=== PATIENT | female | born 1960 | race Hispanic/Latino ===

== ENCOUNTER 2018-02-16 12:43 | Observation (INO) | payer SELFPAY ==
[2018-02-16] VITALS (8 sets, daily range): BP systolic 108–145; BP diastolic 64–95
[~2018-02-16] VITALS: Ht 162.6 cm; Wt 52.0 kg
[~2018-02-16 12:43] MED LIST: MIRALAX3350 N1 PO; NOVOLIN 70/30 INNLT SC; PREVACID30 M3 PO; UNK INSULIN SC; ZOFRAN ODT4 MG PO
[2018-02-16] MEDS ORDERED: METFORMIN500 MG PO (12:54)
[2018-02-16 13:50] LABS: HEMATOCRIT 41.5 % (37.0-47.0); HEMOGLOBIN 14.6 g/dl (12.0-16.0); IMMATURE GRANULOCYTES 0.6 % (0.0-5.0); MEAN CELL VOLUME 83.3 fL CALC (80.0-100.0); MEAN CORPUSCULAR HGB 29.3 pG CALC (26.0-32.0); MEAN CORPUSCULAR HGB CONC 35.2 g/L CALC (32.0-36.0); NEUT# 4.11 thou/uL (2.00-7.15); RED BLOOD COUNT 4.98 mill/uL (4.20-5.60); RED CELL DISTRI WIDTH 12.8 % (11.5-15.5)
[2018-02-16 14:05] LABS: ALBUMIN 4.1 g/dL (3.2-5.0); ALKALINE PHOSPHATASE 212 u/l (38-126); ANION GAP 18 (6-22 (CALC)); BILIRUBIN, TOTAL 0.5 mg/dL (0.0-1.4); BUN 14 mg/dL (7-17); BUN/CREATININE RATIO 37 (12-20 (CALC)); CARBON DIOXIDE 20 mmol/l (22-30); CHLORIDE 99 mmol/l (95-108); CREATININE 0.4 mg/dL (0.5-1.0); GFR > 60 ML/MIN (>=60 (CALC)); GFR FOR AFR.AMER. > 60 ML/MIN (>=60 (CALC)); LIPASE 79 u/l (23-300); POTASSIUM 4.2 mmol/l (3.5-5.1); SGOT/AST 17 u/l (14-36); SODIUM 134 mmol/l (137-146); TOTAL PROTEIN 7.4 g/dL (6.3-8.2)
[2018-02-16 14:44] LABS: URINE BILIRUBIN - DIPSTICK NEGATIVE (NEGATIVE); URINE BLOOD DIPSTICK NEGATIVE (NEGATIVE); URINE COLOR YELLOW; URINE GLUCOSE - DIPSTICK >=1000 mg/dL (NEGATIVE); URINE KETONE NEGATIVE (NEGATIVE); URINE LEUK ESTERASE NEGATIVE (NEGATIVE); URINE NITRITE - DIPSTICK NEGATIVE (Negative); URINE PROTEIN - DIPSTICK NEGATIVE (NEG-TRACE); URINE UROBILINOGEN - DIPSTICK 0.2 E.U./dL (0.2)
[2018-02-17 02:00] VITALS: BP 108/60
[2018-02-17 06:00] VITALS: BP 106/74
[2018-02-17 08:00] VITALS: BP 107/52
[2018-02-17 10:58] LABS: HEMATOCRIT 39.9 % (37.0-47.0); HEMOGLOBIN 14.1 g/dl (12.0-16.0); IMMATURE GRANULOCYTES 0.3 % (0.0-5.0); MEAN CELL VOLUME 83.6 fL CALC (80.0-100.0); MEAN CORPUSCULAR HGB 29.6 pG CALC (26.0-32.0); MEAN CORPUSCULAR HGB CONC 35.3 g/L CALC (32.0-36.0); NEUT# 4.72 thou/uL (2.00-7.15); RED BLOOD COUNT 4.77 mill/uL (4.20-5.60); RED CELL DISTRI WIDTH 12.9 % (11.5-15.5)
[2018-02-17 11:50] LABS: ALBUMIN 3.3 g/dL (3.2-5.0); ALKALINE PHOSPHATASE 147 u/l (38-126); ANION GAP 12 (6-22 (CALC)); BILIRUBIN, TOTAL 0.5 mg/dL (0.0-1.4); BUN 12 mg/dL (7-17); BUN/CREATININE RATIO 29 (12-20 (CALC)); CARBON DIOXIDE 25 mmol/l (22-30); CHLORIDE 102 mmol/l (95-108); CREATININE 0.4 mg/dL (0.5-1.0); GFR > 60 ML/MIN (>=60 (CALC)); GFR FOR AFR.AMER. > 60 ML/MIN (>=60 (CALC)); POTASSIUM 4.2 mmol/l (3.5-5.1); SGOT/AST 17 u/l (14-36); SODIUM 134 mmol/l (137-146); TOTAL PROTEIN 6.3 g/dL (6.3-8.2)
[2018-02-17 12:00] VITALS: BP 106/56
[2018-02-17] MEDS ORDERED: METFORMIN1000 MG PO (12:37)
[2018-02-17] MEDS ORDERED: COZAAR25 MG PO (12:40)
[2018-02-17] MEDS ORDERED: FREESTYLELITE100 XX (12:56)
== END 2018-02-17 14:04 | disposition home or self-care (01) | DRG 638 ==
LOC: ED 12:43 → ED-I 15:07 → ED 15:19 → ICU 15:20
PROVIDERS: Family Medicine; ADMIT Internal Medicine Nephrology; ATTEND Internal Medicine Nephrology
PROC: 3E0234Z Introduction of Serum, Toxoid and Vaccine into Muscle, Percutaneous Approach (ICD-10-PCS; principal; 2018-02-17)
DX: E11.65 Type 2 diabetes mellitus with hyperglycemia (principal); E87.0 Hyperosmolality and hypernatremia; I10 Essential (primary) hypertension; T38.3X6A Underdosing of insulin and oral hypoglycemic [antidiabetic] drugs, initial encounter; Z91.128 Patient's intentional underdosing of medication regimen for other reason; Z23 Encounter for immunization; Z79.4 Long term (current) use of insulin
CPT/HCPCS: J1650

== ENCOUNTER 2018-03-03 14:16 | Emergency (ER) | payer SELFPAY ==
[~2018-03-03] VITALS: Ht 162.6 cm; Wt 65.0 kg
[~2018-03-03 14:16] MED LIST changes: +COZAAR25 MG PO; +FREESTYLELITE100 XX; +METFORMIN1000 MG PO; +METFORMIN500 MG PO
[2018-03-03 17:04] LABS: HEMATOCRIT 41.2 % (37.0-47.0); HEMOGLOBIN 14.4 g/dl (12.0-16.0); IMMATURE GRANULOCYTES 0.3 % (0.0-5.0); MEAN CELL VOLUME 83.7 fL CALC (80.0-100.0); MEAN CORPUSCULAR HGB 29.3 pG CALC (26.0-32.0); NEUT# 4.51 thou/uL (2.00-7.15); RED BLOOD COUNT 4.92 mill/uL (4.20-5.60); RED CELL DISTRI WIDTH 12.9 % (11.5-15.5)
[2018-03-03 17:17] LABS: ALKALINE PHOSPHATASE 149 u/l (38-126); ANION GAP 14 (6-22 (CALC)); BILIRUBIN, TOTAL 0.3 mg/dL (0.0-1.4); BUN 14 mg/dL (7-17); BUN/CREATININE RATIO 30 (12-20 (CALC)); CARBON DIOXIDE 26 mmol/l (22-30); CHLORIDE 102 mmol/l (95-108); CREATININE 0.5 mg/dL (0.5-1.0); GFR > 60 ML/MIN (>=60 (CALC)); GFR FOR AFR.AMER. > 60 ML/MIN (>=60 (CALC)); POTASSIUM 4.2 mmol/l (3.5-5.1); SGOT/AST 22 u/l (14-36); SODIUM 138 mmol/l (137-146); TOTAL PROTEIN 7.4 g/dL (6.3-8.2)
[2018-03-03 17:18] LABS: ALBUMIN 4.2 g/dL (3.2-5.0)
[2018-03-03 17:21] LABS: C-REACTIVE PROTEIN 0.5 mg/dL (0-0.9)
[2018-03-03 17:29] LABS: MYOGLOBIN 17 ng/mL (0 - 62)
[2018-03-03 18:23] LABS: URINE BILIRUBIN - DIPSTICK NEGATIVE (NEGATIVE); URINE BLOOD DIPSTICK NEGATIVE (NEGATIVE); URINE COLOR YELLOW; URINE GLUCOSE - DIPSTICK >=1000 mg/dL (NEGATIVE); URINE KETONE NEGATIVE (NEGATIVE); URINE LEUK ESTERASE NEGATIVE (NEGATIVE); URINE NITRITE - DIPSTICK NEGATIVE (Negative); URINE PH 7.5 (4.5-8.0); URINE PROTEIN - DIPSTICK NEGATIVE (NEG-TRACE); URINE UROBILINOGEN - DIPSTICK 0.2 E.U./dL (0.2)
[2018-03-03] MEDS ORDERED: ANTIVERT PO (19:34)
[2018-03-03] MEDS ORDERED: TORADOL PO (19:34)
[2018-03-03 20:00] VITALS: BP 141/65
== END 2018-03-03 20:06 | disposition home or self-care (01) | DRG 149 ==
LOC: ED 14:16
PROVIDERS: Emergency Medicine
DX: R42 Dizziness and giddiness (principal); R51 Headache; M79.605 Pain in left leg; M79.604 Pain in right leg; I10 Essential (primary) hypertension; E11.9 Type 2 diabetes mellitus without complications

== ENCOUNTER 2018-04-21 13:53 | Emergency (ER) | payer SELFPAY ==
[~2018-04-21] VITALS: Ht 162.6 cm; Wt 110.0 kg
[~2018-04-21 13:53] MED LIST changes: +ANTIVERT PO; +TORADOL PO
[2018-04-21] MEDS ORDERED: METFORMIN500 M2 PO (16:15)
[2018-04-21 16:37] LABS: URINE BILIRUBIN - DIPSTICK NEGATIVE (NEGATIVE); URINE BLOOD DIPSTICK NEGATIVE (NEGATIVE); URINE COLOR YELLOW; URINE GLUCOSE - DIPSTICK >=1000 mg/dL (NEGATIVE); URINE KETONE >=80 mg/dL (NEGATIVE); URINE LEUK ESTERASE NEGATIVE (NEGATIVE); URINE NITRITE - DIPSTICK NEGATIVE (Negative); URINE PROTEIN - DIPSTICK NEGATIVE (NEG-TRACE)
[2018-04-21 16:41] LABS: HEMATOCRIT 45.9 % (37.0-47.0); IMMATURE GRANULOCYTES 0.1 % (0.0-5.0); MEAN CELL VOLUME 82.3 fL CALC (80.0-100.0); MEAN CORPUSCULAR HGB 28.7 pG CALC (26.0-32.0); MEAN CORPUSCULAR HGB CONC 34.9 g/L CALC (32.0-36.0); NEUT# 4.24 thou/uL (2.00-7.15); RED BLOOD COUNT 5.58 mill/uL (4.20-5.60); RED CELL DISTRI WIDTH 12.7 % (11.5-15.5)
[2018-04-21 16:54] LABS: ALBUMIN 4.8 g/dL (3.2-5.0); ALKALINE PHOSPHATASE 173 u/l (38-126); ANION GAP 19 (6-22 (CALC)); BILIRUBIN, TOTAL 0.7 mg/dL (0.0-1.4); BUN 16 mg/dL (7-17); BUN/CREATININE RATIO 36 (12-20 (CALC)); CARBON DIOXIDE 23 mmol/l (22-30); CHLORIDE 99 mmol/l (95-108); CREATININE 0.4 mg/dL (0.5-1.0); GFR > 60 ML/MIN (>=60 (CALC)); GFR FOR AFR.AMER. > 60 ML/MIN (>=60 (CALC)); LIPASE 79 u/l (23-300); SGOT/AST 25 u/l (14-36); SODIUM 137 mmol/l (137-146); TOTAL PROTEIN 8.6 g/dL (6.3-8.2)
[2018-04-21 20:45] VITALS: BP 161/84
== END 2018-04-21 20:54 | disposition short-term general hospital (02) | DRG 446 ==
LOC: ED 13:53
PROVIDERS: Emergency Medicine
DX: K80.50 Calculus of bile duct without cholangitis or cholecystitis without obstruction (principal); I10 Essential (primary) hypertension; E11.9 Type 2 diabetes mellitus without complications
CPT/HCPCS: Q9967

== ENCOUNTER 2021-02-06 12:19 | Inpatient (IN) | payer SELFPAY ==
[~2021-02-06] VITALS: Ht 162.6 cm; Wt 53.0 kg
[~2021-02-06 12:19] MED LIST changes: +METFORMIN500 M2 PO
--- NOTE | 2021-02-06 12:30 | NUR ---
PT MAB TO ROOM IN NO DISTRESS
[2021-02-06 13:38] LABS: HEMATOCRIT 40.5 % (37.0-47.0); IMMATURE GRANULOCYTES 0.2 % (0.0-5.0); MEAN CELL VOLUME 84.4 fL CALC (80.0-100.0); MEAN CORPUSCULAR HGB 28.8 pG CALC (26.0-32.0); MEAN CORPUSCULAR HGB CONC 34.1 g/dL CAL (32.0-36.0); NEUT# 12.42 thou/uL (2.00-7.15); RED BLOOD COUNT 4.8 mill/uL (4.20-5.60); RED CELL DISTRI WIDTH 11.7 % (11.5-15.5)
[2021-02-06 13:40] LABS: HEMOGLOBIN 13.8 g/dl (12.0-16.0)
--- NOTE | 2021-02-06 13:57 | NUR ---
PT UPDATED ON WAIT TIME FOR BUSY ED, EDP AT BEDSIDE. IV INITIATED AND CLEAR YELLOW URINE OBTAINED. CONTINUES WITH RLQ PAIN
[2021-02-06 13:59] LABS: ALKALINE PHOSPHATASE 160 u/l (38-126); ANION GAP 16 (6-22 (CALC)); BILIRUBIN, TOTAL 0.8 mg/dL (0.0-1.4); BUN 15 mg/dL (7-17); BUN/CREATININE RATIO 29 (12-20 (CALC)); CARBON DIOXIDE 23 mmol/l (22-30); CHLORIDE 98 mmol/l (95-108); CREATININE 0.5 mg/dL (0.5-1.0); GFR > 60 ML/MIN (>=60 (CALC)); GFR FOR AFR.AMER. > 60 ML/MIN (>=60 (CALC)); POTASSIUM 4.2 mmol/l (3.5-5.1); SGOT/AST 16 u/l (14-36); SODIUM 133 mmol/l (137-146); TOTAL PROTEIN 6.9 g/dL (6.3-8.2)
[2021-02-06 14:00] LABS: ALBUMIN 3.4 g/dL (3.2-5.0)
[2021-02-06 14:24] LABS: URINE BILIRUBIN - DIPSTICK SMALL (NEGATIVE); URINE BLOOD DIPSTICK NEGATIVE (NEGATIVE); URINE COLOR YELLOW; URINE GLUCOSE - DIPSTICK 500 mg/dL (NEGATIVE); URINE KETONE >=80 mg/dL (NEGATIVE); URINE LEUK ESTERASE NEGATIVE (NEGATIVE); URINE NITRITE - DIPSTICK NEGATIVE (Negative); URINE PROTEIN - DIPSTICK NEGATIVE (NEG-TRACE); URINE SPECIFIC GRAVITY 1.025
--- NOTE | 2021-02-06 14:57 | NUR ---
PT RESTING IN BED IN NO DISTRESS. COMFORTABLE AT THIS TIME.
--- NOTE | 2021-02-06 15:36 | NUR ---
RESTIONG COMFORTABLY AWAITING CT RESULTS IN NO DISTRESS. PAIN 2/
--- NOTE | 2021-02-06 16:50 | NUR ---
Reassessment of patient completed. No distress noted.
--- NOTE | 2021-02-06 17:51 | NUR ---
Reassessment of patient completed. No distress noted.
--- NOTE | 2021-02-06 18:34 | NUR ---
Reassessment of patient completed. No distress noted.
--- NOTE | 2021-02-06 19:25 | NUR ---
REPORT CALLED TO MED SURGE. VERBALIZED HAND OFF. PATIENT ESCORTED TO ROOM 279 VIA WHEELCHAIR WITH BELONGINGS: SHIRT, COAT, PANTS, UNDERGARMENTS, SOCKS, CELL PHONE. ALERT AND ORIENTED. NO ACUTE DISTRESS.
--- NOTE | 2021-02-06 19:30 | NUR ---
PT ARRIVED TO MS2 VIA WHEELCHAIR ACCOMPANIED BY ER NURSE, PT ALERT AND ORIENTED X3, [place] SPEAKING; INSIDE SALES SPEAKS [place]. PT AMBULATED TO BED, STEADY GAIT, ORIENTED PT TO ROOM AND CALL LIGHT, CALL LIGHT IN REACH,CONTINUE TO MONITOR.
[2021-02-06 19:40] VITALS: BP 127/58
--- NOTE | 2021-02-06 20:30 | NUR ---
PT RESTING IN BED, NO SIGNS OF DISTRESS NOTED, RESP EVEN AND UNLABORED. DISCUSSED POC, INITIATED IVF, PT DENIES ANY PAIN AT THIS TIME, DISCUSSED MEDICATIONS. SKIN INTACT, TEDS APPLIED, NO EDEMA. PT BAHAMIAN SPEAKING ADMINISTRATIVE AND PROGRAM SPECIALIST SPEAKS [place]. A+Ox3, ADMISSION ASSESSMENT COMPLETED, CALL LIGHT IN REACH,CONTINUE TO MONITOR.
[2021-02-07] VITALS (12 sets, daily range): BP systolic 92–124; BP diastolic 50–61
--- NOTE | 2021-02-07 | NUR ---
DISCUSSED IV ZOSYN AND NPO STATUS, PT VERBALIZED UNDERSTANDING. PT VOICES NO NEEDS OR COMPLAINTS AT THIS TIME, CALL LIGHT IN REACH,CONTINUE TO MONITOR.
[2021-02-07 05:04] LABS: HEMOGLOBIN 12.4 g/dl (12.0-16.0); MEAN CELL VOLUME 84.7 fL CALC (80.0-100.0); MEAN CORPUSCULAR HGB 29.2 pG CALC (26.0-32.0); MEAN CORPUSCULAR HGB CONC 34.4 g/dL CAL (32.0-36.0); RED BLOOD COUNT 4.25 mill/uL (4.20-5.60); RED CELL DISTRI WIDTH 11.9 % (11.5-15.5)
[2021-02-07 05:29] LABS: BUN 7 mg/dL (7-17); BUN/CREATININE RATIO 16 (12-20 (CALC)); CHLORIDE 107 mmol/l (95-108); CREATININE 0.5 mg/dL (0.5-1.0); GFR > 60 ML/MIN (>=60 (CALC)); GFR FOR AFR.AMER. > 60 ML/MIN (>=60 (CALC)); MAGNESIUM 1.8 mg/dL (1.6-2.3); SODIUM 133 mmol/l (137-146)
[2021-02-07 05:32] LABS: ANION GAP 12 (6-22 (CALC)); CARBON DIOXIDE 17 mmol/l (22-30); POTASSIUM 3.2 mmol/l (3.5-5.1)
--- NOTE | 2021-02-07 06:00 | NUR ---
PT MEDICATED PER MAR, NO SIGNS OF DISTRESS NOTED, RESP EVEN AND UNLABORED. CALL LIGHT IN REACH,CONTINUE TO MONITOR.
--- NOTE | 2021-02-07 07:39 | NUR ---
PT SLEEPING IN BED, AWAKENED TO COMPLETE ASSESSMENT. A&O X3. PRIMAIRLY [place]ALIAN SPEAKING. NO DISTRESS NOTED. PT C/O OF PAIN 5/10; DENIES THE NEED OF ANY PAIN MEDICATION AT THIS TIME. CLEAR BREATH SOUNDS UPON AUSCULTATION. ACTIVE BOWEL SOUNDS X4 QUADRANTS. PT EDUCATED ON NPO DIET, PT VERBALIZED UNDERSTANDING. STRONG PEDAL PULSES BILATERALY; JOANA HOSES IN PLACE. #20G LAC HEALTHY AND PATENT WITH IVF INFUSING PER MAR ORDERS. NO OTHER NEEDS AT THIS TIME. ASSESSMENT COMPLETED. DISCUSSED POC. CALL LIGHT WITHIN REACH.
--- NOTE | 2021-02-07 09:25 | NUR ---
DR AVILES AND Daisha SIMMS APRN AT BEDSIDE DISCUSSING POC
--- NOTE | 2021-02-07 09:35 | NUR ---
DR HENSON AT BEDSIDE DISCUSSING POC
--- NOTE | 2021-02-07 10:30 | NUR ---
INFORMED CONSENT FOR PROCEDURE OBTAINED BY THIS COCOA ROOM OPERATOR
--- NOTE | 2021-02-07 11:09 | NUR ---
PT TAKEN VIA STRETCHER ACCOMPANIED BY Galilea DIANE RN IN STABLE CONDITION TO OR.
--- NOTE | 2021-02-07 12:55 | NUR ---
PT REMAINS IN OR AT THIS TIME
--- NOTE | 2021-02-07 19:40 | NUR ---
PT RESTING IN BED WITH EYES CLOSED, EASILY AROUSED TO VERBAL STIMULI, DISCUSSED POC, PT HAS ABDOMINAL BINDER AT THIS TIME, REMOVED FOR ASSESSMENT, MIDLINE DRESSING CDI, DRESSING TO RLQ WITH SHARLA X1 EMPTIED OF 120ML, ICE PACK PROVIDED. INCENTIVE SPIROMETER AT BEDSIDE, PT DEMONSTRATED ITS USE AND TOTAL VOLUME 500ML,ENCOURAGED ITS USE AND SET GOAL AT 1000ML. SCD'S IN PLACE, ASSESSMENT COMPLETED, PT MEDICATED PER APR, CALL LIGHT IN REACH,CONTINUE TO MONITOR.
--- NOTE | 2021-02-07 23:54 | NUR ---
PT RESTING IN BED WATCHING TV, IV ANTIBIOTIC INITIATED. PT VOICES NO NEEDS OR COMPLAINTS, CALL LIGHT IN REACH,CONTINUE TO MONITOR.
[2021-02-08 03:50] VITALS: BP 116/63
[2021-02-08 04:54] LABS: HEMATOCRIT 38.7 % (37.0-47.0); HEMOGLOBIN 12.7 g/dl (12.0-16.0); MEAN CORPUSCULAR HGB 28.2 pG CALC (26.0-32.0); MEAN CORPUSCULAR HGB CONC 32.8 g/dL CAL (32.0-36.0); RED BLOOD COUNT 4.5 mill/uL (4.20-5.60); RED CELL DISTRI WIDTH 12.3 % (11.5-15.5)
[2021-02-08 05:16] LABS: ANION GAP 13 (6-22 (CALC)); BUN 4 mg/dL (7-17); BUN/CREATININE RATIO 9 (12-20 (CALC)); CARBON DIOXIDE 15 mmol/l (22-30); CHLORIDE 108 mmol/l (95-108); CREATININE 0.5 mg/dL (0.5-1.0); GFR > 60 ML/MIN (>=60 (CALC)); GFR FOR AFR.AMER. > 60 ML/MIN (>=60 (CALC)); MAGNESIUM 1.8 mg/dL (1.6-2.3); POTASSIUM 3.7 mmol/l (3.5-5.1); SODIUM 133 mmol/l (137-146)
[2021-02-08 07:27] VITALS: BP 114/59
--- NOTE | 2021-02-08 08:00 | NUR ---
PT AWAKE UPON ENTERING ROOM. SHARLA DRAIN PLACED ON RIGHT OF ABDOMEN. NO SIGN OF ANY LEAKAGE. BOWEL SOUNDS HEARD X4, ASSESSMENT ALLOWED AT THIS TIME. LUNG SOUNDS CLEAR UPPER LOWER LOBES. HEART SOUNDS REGULAR. DRESSING IC CDI. PT ACCUCHECK 145 NO CPOVERAGE NEEDED. IV ON LAC 20G INFUSING NS PER EMAR ORDER. SCD IN PLACE. IS AT BEDSIDE. FALL PRECAUTIONS IN PLACE. CALL LIGHT WITHIN REACH.
[2021-02-08 10:30] VITALS: BP 115/66
--- NOTE | 2021-02-08 12:00 | NUR ---
PT EATING LUNCH AT THIS TIME. REPORTS NO PAIN AT THIS TIME. CALL LIGHT WITHIN REACH. SCD STILL IN PLACE. IV PATENT.
[2021-02-08 15:00] VITALS: BP 118/66
--- NOTE | 2021-02-08 16:00 | NUR ---
PT STATES PAIN IS ALOT BETTER. VERY SHY IN ASKING FOR PAIN MEDICATION. NO OTHER NEEDS AT THIS TIME. CALL LIGHT WITHIN REACH. IV WAS LEAKING SO ESTABLISHED NEW ONE. NEW IV IS ON THE RW AT 20G, FLUSHED WITH BLOOD RETURN. CALL LIGHT WITHIN REACH.
[2021-02-08 19:00] VITALS: BP 118/59
--- NOTE | 2021-02-08 19:00 | NUR ---
REPORT RECEIVED FROM Dale JIMENEZ RN
--- NOTE | 2021-02-09 00:29 | NUR ---
PATIENT UP TO THE RESTROOM AT THIS TIME, SMALL INCONTINENT BOWEL MOVENT. ASSITANCE OF ONE PROVIDED. INSTRUCTED TO CALL WHEN FINSIHED. PT ASSITED BACK TO BED WITH ASSITANCE OF AIDE.
[2021-02-09 04:00] VITALS: BP 113/59
[2021-02-09 04:48] LABS: HEMATOCRIT 36.9 % (37.0-47.0); HEMOGLOBIN 12.3 g/dl (12.0-16.0); MEAN CELL VOLUME 85.8 fL CALC (80.0-100.0); MEAN CORPUSCULAR HGB 28.6 pG CALC (26.0-32.0); MEAN CORPUSCULAR HGB CONC 33.3 g/dL CAL (32.0-36.0); RED BLOOD COUNT 4.3 mill/uL (4.20-5.60); RED CELL DISTRI WIDTH 12.3 % (11.5-15.5)
[2021-02-09 05:12] LABS: ANION GAP 10 (6-22 (CALC)); BUN 3 mg/dL (7-17); BUN/CREATININE RATIO 6 (12-20 (CALC)); CARBON DIOXIDE 18 mmol/l (22-30); CHLORIDE 109 mmol/l (95-108); CREATININE 0.4 mg/dL (0.5-1.0); GFR > 60 ML/MIN (>=60 (CALC)); GFR FOR AFR.AMER. > 60 ML/MIN (>=60 (CALC)); MAGNESIUM 1.9 mg/dL (1.6-2.3); POTASSIUM 3.3 mmol/l (3.5-5.1); SODIUM 133 mmol/l (137-146)
--- NOTE | 2021-02-09 06:30 | NUR ---
PATIENT RESTING COMOFRTABLY, DENIES ANY CURRENT NEEDS AT THIS TIME. SHARLA DRAIN EMPTIED 50ML CLEAR RED FLUID. PT DENIES ANY PAIN AT THIS TIME. CALL LIGHT AND BEDSDIE TABLE WTIHIN REACH.
[2021-02-09 08:02] VITALS: BP 106/64
--- NOTE | 2021-02-09 08:04 | NUR ---
PT AWAKE UPON ENTERING ROOM. STATES HAVING NO PAIN AT THIS TIME. DRESSING IS CDI. SHARLA DRAIN STILL IN PLACE DRAINING BRIGHT RED BLOOD. VITALS AND ASSESSMENTS ALLOWED AT THIS TIME. LUNG SOUNDS CLEAR UPPER/LOWER LOBES. HEART SOUNDS ARE REGULAR. BOWEL SOUNDS ACTIVE X4, IV LOCATED ON THE RW INFUSING NE PER EMAR ORDER. FLUSHED WITH NO RESISTANCE AND ABLE TO GET BLOOD RETURN. STATES NO OTHER NEEDS AT THIS TIME. FALL PRECAUTIONS IN PLACE. CALL LIGHT AND PERSONAL ITEMS ARE WITHIN REACH.
--- NOTE | 2021-02-09 12:16 | NUR ---
FRIEND AT BEDSIDE. DRESSING IS CDI. SHARLA DRAIN IN PLACE. STATES PAIN IS BETTER AFTER GIVING DILAUDID 0.5MG. IV PATENT INFUSING NS PER EMAR ORDER. ENCOUARGED PT TO USE CALL LIGHT. CALL LIGHT WITHIN REACH.
[2021-02-09 16:11] VITALS: BP 121/56
[2021-02-09 19:10] VITALS: BP 100/58
--- NOTE | 2021-02-09 19:10 | NUR ---
REPORT RECEIVED FROM Galilea JIMENEZ RN
--- NOTE | 2021-02-09 19:48 | NUR ---
PT IN BED SLEEPING. NO DISTRESS NOTED. CALL LIGHT WITHIN REACH.
--- NOTE | 2021-02-10 00:45 | NUR ---
PATIENT RESTING COMFORTABLY, UP TO THE RESTROOM AT THIS TIME WITH ASSITANCE OF WRITTER. GOWN AND BED SHEETS CHANGED RELATED TO INCONTINENT EPISODE.
[2021-02-10 04:36] VITALS: BP 116/65
[2021-02-10 05:32] LABS: HEMATOCRIT 34.4 % (37.0-47.0); HEMOGLOBIN 11.7 g/dl (12.0-16.0); MEAN CELL VOLUME 84.5 fL CALC (80.0-100.0); MEAN CORPUSCULAR HGB 28.7 pG CALC (26.0-32.0); RED BLOOD COUNT 4.07 mill/uL (4.20-5.60); RED CELL DISTRI WIDTH 12.3 % (11.5-15.5)
[2021-02-10 06:08] LABS: BUN 2 mg/dL (7-17); BUN/CREATININE RATIO 6 (12-20 (CALC)); CHLORIDE 107 mmol/l (95-108); CREATININE 0.4 mg/dL (0.5-1.0); GFR > 60 ML/MIN (>=60 (CALC)); GFR FOR AFR.AMER. > 60 ML/MIN (>=60 (CALC)); POTASSIUM 3.3 mmol/l (3.5-5.1); SODIUM 136 mmol/l (137-146)
[2021-02-10 06:20] LABS: ANION GAP 8 (6-22 (CALC)); CARBON DIOXIDE 24 mmol/l (22-30)
[2021-02-10 08:17] VITALS: BP 104/59
--- NOTE | 2021-02-10 08:17 | NUR ---
PT SITTING IN BED. A&O X3. NO DISTRESS NOTED. CLEAR BREATH SOUNDS UPON AUSCULTATION. ACTIVE BOWEL SOUNDS X4 QUADRANTS. SHARLA DRAIN IN PLACE; MINIMAL SEROSANGUINEOUS DRAINAGE NOTED. ABD PAD APPLIED TO MIDLINE INCISION. #20G RFA HEALTHY AND PATENT WITH IVF INFUSING PER MAR ORDER. PT DENIES ANY PAIN AT THIS TIME. ASSESSMENT COMPLETED. DISCUSSED POC. CALL LIGHT WITHIN REACH.
--- NOTE | 2021-02-10 13:20 | NUR ---
PT PREMEDICATED WITH DILAUDID FOR SHARLA REMOVAL. SHARLA DRAIN REMOVED BY Lizbet RANDLE LPN. PT TOLERATED WELL. 4X4 PLACED WITH TEGADERM. NO OTHER NEEDS AT THIS TIME. CALL LIGHT WITHIN REACH.
[2021-02-10 16:56] VITALS: BP 142/88
--- NOTE | 2021-02-10 17:13 | NUR ---
PT SLEEPING IN BED. AWAKENED TO ADMINISTER INSULIN PER SLIDING SCALE. NO DISTRESS NOTED. PT DENIES ANY PAIN AT THIS TIME. CALL LIGHT WITHIN REACH.
[2021-02-10 19:00] VITALS: BP 112/68
--- NOTE | 2021-02-10 20:20 | NUR ---
PATIENT RESTING IN BED AT THIS TIME. AWAKE ALERT AND ORIENTEDX3. 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 PATIENT C/O CEVERE POST-OP PAIN-MEIDCATED WITH DILAUDID 1MG IVP FOR PAIN. IVF NS PATENT AND INFUSING VIA RIGHT FOREARM ORDERED AT 30CC/HR. SITE IS HEALTHY AT THIS TIME WITH GOOD BLOOD RETURN. ABD DRESSING IS CDI AT THIS TIME WITH BS+. PATIENT STATES THAT SHE IS HAVING BM'S TODAYT., NO DIFFICULTY WITH URINATION. SCD'S IN PLACE. ENCOURAGED USE OF IS Q1H WHILE AWAKE. WILL REINFORCE. SAFETY PRECAUTIONS REINFORCED. CALL LIGHT IN REACH. WILL CONT TO MONITOR.
--- NOTE | 2021-02-10 21:00 | NUR ---
ACCU-CHECK WAS 168-COVERED WITH 1UNIT OF HUMALOG PER SLIDING SCALE COVERAGE PROTOCOL. PROVIDED WITH JELLO FOR HS SNACK AND JUICE. CALL LIGHT IN REACH. WILL CONT TO MONITOR.
[2021-02-11] VITALS: BP 99/58
--- NOTE | 2021-02-11 00:15 | NUR ---
RESTING IN BED AT THIS TIME WITH EYES CLOSED. RESPS ARE EVEN AND UNLABORED. ZOSYN HUNG ORDERED AND INFUSING VIA RIGHT FOREARM IV SITE. CALL LIGHT IN REACH. WILL CONT TO MONTIOR.
[2021-02-11 04:10] VITALS: BP 105/68
--- NOTE | 2021-02-11 04:30 | NUR ---
PATIENT RESTING IN BED AT THIS TIME WITH EYES CLOSED. RESPS ARE EVEN AND UNLABORED. ABD DRESSING IS CDI AT THIS TIME. IVF NS PATENT AND INFUSING VIA RIGHT FOREARM SITE AT 30CC/HR. CALL LIGHT IN REACH. WILL CONT TO MONITOR.
[2021-02-11 06:07] LABS: ANION GAP 6 (6-22 (CALC)); BUN < 2 mg/dL (7-17); CARBON DIOXIDE 28 mmol/l (22-30); CHLORIDE 106 mmol/l (95-108); CREATININE 0.4 mg/dL (0.5-1.0); GFR > 60 ML/MIN (>=60 (CALC)); GFR FOR AFR.AMER. > 60 ML/MIN (>=60 (CALC)); HEMATOCRIT 34.6 % (37.0-47.0); HEMOGLOBIN 11.4 g/dl (12.0-16.0); MEAN CELL VOLUME 85.2 fL CALC (80.0-100.0); MEAN CORPUSCULAR HGB 28.1 pG CALC (26.0-32.0); MEAN CORPUSCULAR HGB CONC 32.9 g/dL CAL (32.0-36.0); POTASSIUM 3.6 mmol/l (3.5-5.1); RED BLOOD COUNT 4.06 mill/uL (4.20-5.60); RED CELL DISTRI WIDTH 12.4 % (11.5-15.5); SODIUM 136 mmol/l (137-146)
--- NOTE | 2021-02-11 07:08 | NUR ---
PT SITTING IN BED. NO DISTRESS NOTED. A&O X3. CLEAR BREATH SOUNDS UPON AUSCULTATION. ACTIVE BOWEL SOUNDS X4 QUADRANTS; PT REPORTS TOLERTING LIQUID DIET WELL. CURRENTLY C/O PAIN 5/10; PAIN MEDICATION ADMINISTERED AT THIS TIME. IVF HEALTHY PATENT INFUSING IVF PER MAR. NO OTHER NEEDS AT THIS TIME. ASSESSMENT COMPLETED. DISCUSSED POC & POSS D/C. CALL LIGHT WITHIN REACH.
--- NOTE | 2021-02-11 07:37 | NUR ---
DR HENSON AT BEDSIDE DISCUSSING POC & POSS D.C
[2021-02-11 07:51] VITALS: BP 120/57
[2021-02-11] MEDS ORDERED: PERCOCET 5/325M1 TAB PO (08:36)
[2021-02-11] MEDS ORDERED: AUGMENTIN500TAB PO (08:37)
--- NOTE | 2021-02-11 10:21 | NUR ---
S- pt reported a little pain. 0- Pt seen for treatment this am. She followed instructions well. Rolling and supine to sit with modified indep using bed rail. Transfer to chair with CGA without LOB noted. She was able to ambulate in room without assist device 2 x60. CGA provided but no LOB noted. She took small steps and slow pace, touching bottom of bed as passing by. LE ex performed including LAQ, marching in sitting, clam shells in sitting and active dorsiflexion of ankle. Standing upper on toe, mini squat with UE support. Exercises performed 2 x 10 reps. PT HR 72-80 02 sats upper 90's. Time spent with pt 45 min. A- modified indep, [facility] 15 home. p- Will follow per POC
--- NOTE | 2021-02-11 10:38 | NUR ---
DR COX AND Daisha SIMMS WELDER FITTER ARC AT BEDSIDE DISCUSSING POC
--- NOTE | 2021-02-11 13:10 | NUR ---
PT SITTING IN CHAIR. REPORTS SOFT DIET WAS TOLERATED WELL. UPDATED D DEMI LACEY ON TOLERANCE, FINAL OKAY TO BE D/C. UPDATED PT ON D/C PLANNING; TRANSPORTATION TO ARRIVE AT 4PM. CALL LIGHT WITHIN REACH.
[2021-02-11 15:34] VITALS: BP 112/49
--- NOTE | 2021-02-11 16:52 | NUR ---
Discharge instructions given. Patient verbalizes understanding of same. Discharged in stable condition via Wheelchair to Home with staff. All belongings sent with pt. Business card with Dr Casanova's information provided. Carol vasquez applied. pt educated on new medications. Pt instructed to come back if new or worsening symptoms arise.
== END 2021-02-11 16:52 | disposition home or self-care (01) | DRG 340 ==
LOC: ED 12:19 → ED-I 17:00 → ED 17:32 → MS2 17:33
PROVIDERS: Emergency Medicine; Nurse Practitioner; ADMIT Hospitalist; ATTEND Hospitalist
PROC: 0DTJ0ZZ Resection of Appendix, Open Approach (ICD-10-PCS; principal; 2021-02-07)
PROC: 0WJG4ZZ Inspection of Peritoneal Cavity, Percutaneous Endoscopic Approach (ICD-10-PCS; 2021-02-07)
PROC: 3E02340 Introduction of Influenza Vaccine into Muscle, Percutaneous Approach (ICD-10-PCS; 2021-02-07)
DX: K35.33 Acute appendicitis with perforation, localized peritonitis, and gangrene, with abscess (principal); E87.6 Hypokalemia; I10 Essential (primary) hypertension; E11.9 Type 2 diabetes mellitus without complications; Z79.84 Long term (current) use of oral hypoglycemic drugs; Z23 Encounter for immunization
CPT/HCPCS: J0131; J1650; Q9967

== ENCOUNTER 2021-04-18 16:27 | Emergency (ER) | payer OTHER ==
[~2021-04-18] VITALS: Ht 162.6 cm; Wt 55.0 kg
[~2021-04-18 16:27] MED LIST changes: +AUGMENTIN500TAB PO; +PERCOCET 5/325M1 TAB PO
[2021-04-18 17:46] LABS: HEMOGLOBIN 13.3 g/dl (12.0-16.0); IMMATURE GRANULOCYTES 0.4 % (0.0-5.0); MEAN CELL VOLUME 83.5 fL CALC (80.0-100.0); MEAN CORPUSCULAR HGB 28.5 pG CALC (26.0-32.0); MEAN CORPUSCULAR HGB CONC 34.1 g/dL CAL (32.0-36.0); NEUT# 2.18 thou/uL (2.00-7.15); RED BLOOD COUNT 4.67 mill/uL (4.20-5.60); RED CELL DISTRI WIDTH 14.1 % (11.5-15.5)
[2021-04-18 18:02] LABS: ALBUMIN 4.2 g/dL (3.2-5.0); ALKALINE PHOSPHATASE 193 u/l (38-126); ANION GAP 13 (6-22 (CALC)); BILIRUBIN, TOTAL 0.4 mg/dL (0.0-1.4); BUN 18 mg/dL (7-17); BUN/CREATININE RATIO 31 (12-20 (CALC)); CARBON DIOXIDE 24 mmol/l (22-30); CHLORIDE 101 mmol/l (95-108); CREATININE 0.6 mg/dL (0.5-1.0); GFR > 60 ML/MIN (>=60 (CALC)); GFR FOR AFR.AMER. > 60 ML/MIN (>=60 (CALC)); SGOT/AST 29 u/l (14-36); SODIUM 133 mmol/l (137-146); TOTAL PROTEIN 7.4 g/dL (6.3-8.2)
[2021-04-18] MEDS ORDERED: METFORMIN HCL1000 M1 PO (18:45)
[2021-04-18 19:13] VITALS: BP 141/87
== END 2021-04-18 19:21 | disposition home or self-care (01) | DRG 639 ==
LOC: ED 16:27
PROVIDERS: Family Medicine
DX: E11.65 Type 2 diabetes mellitus with hyperglycemia (principal); I10 Essential (primary) hypertension; Z79.84 Long term (current) use of oral hypoglycemic drugs

== ENCOUNTER 2022-09-04 13:11 | Inpatient (IN) | payer SELFPAY ==
[2022-09-04] VITALS (13 sets, daily range): BP systolic 107–163; BP diastolic 61–94
[~2022-09-04] VITALS: Ht 157.5 cm; Wt 50.4 kg
[~2022-09-04 13:11] MED LIST changes: +METFORMIN HCL1000 M1 PO
[2022-09-04 13:53] LABS: URINE BILIRUBIN - DIPSTICK NEGATIVE (NEGATIVE); URINE COLOR YELLOW; URINE GLUCOSE - DIPSTICK >=1000 mg/dL (NEGATIVE); URINE KETONE Negative (NEGATIVE); URINE SPECIFIC GRAVITY <=1.005
[2022-09-04 13:54] LABS: URINE BLOOD DIPSTICK NEGATIVE (NEGATIVE); URINE LEUK ESTERASE NEGATIVE (NEGATIVE); URINE NITRITE - DIPSTICK NEGATIVE (Negative); URINE PROTEIN - DIPSTICK NEGATIVE (NEG-TRACE); URINE UROBILINOGEN - DIPSTICK 0.2 E.U./dL (0.2)
[2022-09-04 14:01] LABS: BASO% 0.5 % (0-3); EOS% 1.2 % (0-8); HEMATOCRIT 40.2 % (37.0-47.0); IMMATURE GRANULOCYTES 0.2 % (0.0-5.0); LYMPH% 32.1 % (15-41); MEAN CELL VOLUME 83.2 fL CALC (80.0-100.0); MEAN CORPUSCULAR HGB CONC 34.8 g/dL CAL (32.0-36.0); MONO% 6.9 % (2-13); NEUT# 3.87 thou/uL (2.00-7.15); NEUT% 59.1 % (42-76); RED BLOOD COUNT 4.83 mill/uL (4.20-5.60); RED CELL DISTRI WIDTH 12.3 % (11.5-15.5)
[2022-09-04 14:56] LABS: ALBUMIN 4.3 g/dL (3.2-5.0); ALKALINE PHOSPHATASE 191 u/l (38-126); ANION GAP 15 (6-22 (CALC)); BILIRUBIN, TOTAL 0.5 mg/dL (0.02-1.3); BUN 16 mg/dL (8-23); BUN/CREATININE RATIO 32 (12-20 (CALC)); CARBON DIOXIDE 23 mmol/l (22-30); CHLORIDE 100 mmol/l (95-108); CREATININE 0.5 mg/dL (0.5-1.0); GFR FOR AFR.AMER. > 60 ML/MIN (>=60 (CALC)); GFR OTHER RACES > 60 ML/MIN (>=60 (CALC)); SGOT/AST 27 u/l (9-36); SODIUM 134 mmol/l (137-146); TOTAL PROTEIN 7.3 g/dL (6.3-8.2)
[2022-09-04 15:33] LABS: ACT PARTIAL THROMBO TIME 23.9 SECONDS (20.0-32.5); PROTHROMBIN TIME 9.9 SECONDS (9.0-12.5)
[2022-09-05] VITALS (8 sets, daily range): BP systolic 99–127; BP diastolic 53–66
[2022-09-05 05:10] LABS: HEMATOCRIT 40.6 % (37.0-47.0); HEMOGLOBIN 14.2 g/dl (12.0-16.0); MEAN CELL VOLUME 84.2 fL CALC (80.0-100.0); MEAN CORPUSCULAR HGB 29.5 pG CALC (26.0-32.0); RED BLOOD COUNT 4.82 mill/uL (4.20-5.60); RED CELL DISTRI WIDTH 12.3 % (11.5-15.5)
[2022-09-05 05:20] LABS: ANION GAP 12 (6-22 (CALC)); BUN 17 mg/dL (8-23); BUN/CREATININE RATIO 38 (12-20 (CALC)); CALCULATED LDLCHOLESTEROL 97 mg/dL (62-129 (CALC)); CARBON DIOXIDE 23 mmol/l (22-30); CHLORIDE 106 mmol/l (95-108); CHOLESTEROL HDL RATIO 4.5 (<4.4 (CALC)); CREATININE 0.4 mg/dL (0.5-1.0); GFR FOR AFR.AMER. > 60 ML/MIN (>=60 (CALC)); GFR OTHER RACES > 60 ML/MIN (>=60 (CALC)); HDL CHOLESTEROL 37 mg/dL (39.0-59.0); POTASSIUM 3.6 mmol/l (3.5-5.1); SODIUM 137 mmol/l (137-146); TOTAL CHOLESTEROL 168 mg/dl (0-199); TOTAL TRIGLYCERIDES 170 mg/dl (0-149); VLDL CHOLESTROL 34 mg/dl (1-41 (CALC))
[2022-09-05 15:10] LABS: BASO% 0.3 % (0-3); EOS% 1.4 % (0-8); HEMATOCRIT 40.4 % (37.0-47.0); HEMOGLOBIN 13.9 g/dl (12.0-16.0); IMMATURE GRANULOCYTES 0.2 % (0.0-5.0); LYMPH% 33.4 % (15-41); MEAN CELL VOLUME 84.2 fL CALC (80.0-100.0); MEAN CORPUSCULAR HGB CONC 34.4 g/dL CAL (32.0-36.0); MONO% 8.4 % (2-13); NEUT# 3.61 thou/uL (2.00-7.15); NEUT% 56.3 % (42-76); RED BLOOD COUNT 4.8 mill/uL (4.20-5.60); RED CELL DISTRI WIDTH 12.2 % (11.5-15.5)
[2022-09-05 15:28] LABS: ACT PARTIAL THROMBO TIME 24.5 SECONDS (20.0-32.5); PROTHROMBIN TIME 10.4 SECONDS (9.0-12.5)
[2022-09-06] VITALS (7 sets, daily range): BP systolic 88–146; BP diastolic 47–86
[2022-09-06 03:55] LABS: HEMOGLOBIN 14.1 g/dl (12.0-16.0); MEAN CELL VOLUME 84.5 fL CALC (80.0-100.0); MEAN CORPUSCULAR HGB 29.1 pG CALC (26.0-32.0); MEAN CORPUSCULAR HGB CONC 34.4 g/dL CAL (32.0-36.0); RED BLOOD COUNT 4.85 mill/uL (4.20-5.60); RED CELL DISTRI WIDTH 12.3 % (11.5-15.5)
[2022-09-06 05:35] LABS: ALBUMIN 3.5 g/dL (3.2-5.0); ALKALINE PHOSPHATASE 144 u/l (38-126); ANION GAP 10 (6-22 (CALC)); BILIRUBIN, TOTAL 0.4 mg/dL (0.02-1.3); BUN 23 mg/dL (8-23); BUN/CREATININE RATIO 42 (12-20 (CALC)); CARBON DIOXIDE 23 mmol/l (22-30); CHLORIDE 107 mmol/l (95-108); CREATININE 0.5 mg/dL (0.5-1.0); GFR FOR AFR.AMER. > 60 ML/MIN (>=60 (CALC)); GFR OTHER RACES > 60 ML/MIN (>=60 (CALC)); MAGNESIUM 2.1 mg/dL (1.6-2.3); POTASSIUM 3.6 mmol/l (3.5-5.1); SGOT/AST 26 u/l (9-36); SODIUM 136 mmol/l (137-146); TOTAL PROTEIN 6.6 g/dL (6.3-8.2)
[2022-09-06 09:42] LABS: BASO% 0.3 % (0-3); EOS% 1.3 % (0-8); HEMATOCRIT 42.7 % (37.0-47.0); HEMOGLOBIN 15.2 g/dl (12.0-16.0); IMMATURE GRANULOCYTES 0.1 % (0.0-5.0); LYMPH% 35.8 % (15-41); MEAN CELL VOLUME 84.7 fL CALC (80.0-100.0); MEAN CORPUSCULAR HGB 30.2 pG CALC (26.0-32.0); MEAN CORPUSCULAR HGB CONC 35.6 g/dL CAL (32.0-36.0); MONO% 6.8 % (2-13); NEUT# 3.87 thou/uL (2.00-7.15); NEUT% 55.7 % (42-76); RED BLOOD COUNT 5.04 mill/uL (4.20-5.60); RED CELL DISTRI WIDTH 12.3 % (11.5-15.5)
[2022-09-07 00:22] VITALS: BP 132/69
[2022-09-07 04:36] VITALS: BP 128/66
[2022-09-07 08:15] VITALS: BP 116/60
[2022-09-07] MEDS ORDERED: PLAVIX75 MG PO (10:36)
[2022-09-07] MEDS ORDERED: LEVEMIR100 UNIT SC (10:36)
[2022-09-07] MEDS ORDERED: ADLT ASA LOW81 MG PO (10:36)
[2022-09-07] MEDS ORDERED: LIPITOR80 M1 PO (10:36)
== END 2022-09-07 13:20 | disposition home or self-care (01) | DRG 65 ==
LOC: ED 13:11 → ED-I 15:50 → ED 16:06 → MS2 16:07
PROVIDERS: Family Medicine; ADMIT Internal Medicine; ATTEND Internal Medicine
DX: I63.031 Cerebral infarction due to thrombosis of right carotid artery (principal); G81.94 Hemiplegia, unspecified affecting left nondominant side; R29.704 NIHSS score 4; I10 Essential (primary) hypertension; E11.65 Type 2 diabetes mellitus with hyperglycemia; R90.82 White matter disease, unspecified; Z79.84 Long term (current) use of oral hypoglycemic drugs
CPT/HCPCS: J1644; J1650